=== PATIENT | female | born 1975 | race Caucasian/White ===

== ENCOUNTER → 2018-09-02 | Outpatient (CLI) | payer BC ==
[2016-06-19 12:45] VITALS: BP 122/88
[~2018-09-02] MED LIST: IOHEXOL 240 MG/ML 50ML VIAL. ONE; IOHEXOL 300 MG/ML 75 ML VIAL. IV ONE; LOPE2TAB27 PO; ONDA4TAB10 SL
--- NOTE | 2018-09-02 15:11 | RAD ---
CT ABDOMEN W/CONTRAST Indication: Left upper quadrant pain for 3 or 4 days, nausea and vomiting. Cholecystectomy. Appendectomy. Exposure: One or more of the following individualized dose reduction techniques were utilized for this examination: 1. Automated exposure control 2. Adjustment of the mA and/or kV according to patient size 3. Use of iterative reconstruction technique. Technique: Intravenous contrast was given. Oral contrast was given. No prior study for comparison. Mild dependent atelectasis in the lung bases. Liver and spleen unremarkable. No evidence of peripancreatic fluid or inflammatory change. No adrenal mass. Kidneys demonstrate symmetric enhancement without dominant mass or hydronephrosis. Gallbladder surgically absent. Abdominal aorta demonstrates no significant aneurysm. No significant abdominal lymph node enlargement. No significant distention thickening of visualized abdominal bowel loops. No evidence of ascites or pneumoperitoneum. Visualized bones are intact. Mild degenerative changes of the spine. Minimal retrolisthesis of L4 on L5. IMPRESSION: No acute findings are identified in the abdomen. Electronically signed by: Murphy Ramirez MD (09/02/2018 3:09 PM) [facility]
== END | disposition home or self-care (01) ==
LOC: CT 12:55
PROVIDERS: ATTEND Nurse Practitioner Family
DX: J98.11 Atelectasis (principal); K52.89 Other specified noninfective gastroenteritis and colitis; Z90.49 Acquired absence of other specified parts of digestive tract; Z90.89 Acquired absence of other organs
CPT/HCPCS: 74160; Q9967